=== PATIENT | male | born 1960 | race African-American/Black ===

== ENCOUNTER 2017-12-06 12:40 | Observation (INO) | payer OTHER ==
[2017-12-06 13:31] LABS: ADD MAN DIFF? NO
[2017-12-06 13:48] LABS: BASOPHILS % 0.6 % (0.0-2.0); EOSINOPHILS # 0.2 10^3/ul (0.0-0.5); EOSINOPHILS % 2.8 % (0.0-7.0); HEMATOCRIT 38.6 % (42.0-52.0); HEMOGLOBIN 12.1 g/dl (14.0-18.0); LYMPHOCYTES # 1.2 10^3/ul (0.8-2.9); LYMPHOCYTES % 22.1 % (15.0-51.0); MEAN CORPUSCULAR HEMOGLOBIN 29.2 pg (29.0-33.0); MEAN CORPUSCULAR HGB CONC 31.3 g/dl (32.0-37.0); MEAN PLATELET VOLUME 12.8 fl (7.4-10.4); MONOCYTE # 0.9 10^3/ul (0.3-0.9); MONOCYTES % 15.9 % (0.0-11.0); NEUTROPHIL # 3.1 10^3/ul (1.6-7.5); NEUTROPHILS % 58.4 % (39.0-77.0); PLATELET COUNT 158 10^3/UL (140-415); RED BLOOD COUNT 4.15 10^6/ul (4.70-6.10); RED CELL DISTRIBUTION WIDTH 16.4 % (11.5-14.5)
[2017-12-06 13:48] LABS: WHITE BLOOD COUNT 5.3 10^3/ul (4.8-10.8)
[2017-12-06] MEDS: ASPIRIN 81 MG TAB PO (13:48)
[2017-12-06] MEDS: FUROSEMIDE 40 MG INJ IV (13:48)
[2017-12-06] MEDS: NITROGLYCERIN 2% 1 GM OINT PKT TD (13:49)
[2017-12-06] MEDS: NITROGLYCERIN (SL) 0.4 MG TAB SL (13:49)
[2017-12-06 14:09] LABS: ANION GAP 15 (8-16); BLOOD UREA NITROGEN 13 mg/dl (7-20); CALCIUM 9.2 mg/dl (8.4-10.2); CARBON DIOXIDE 25 mmol/L (21-31); CHLORIDE 108 mmol/L (97-110); CREATININE 0.89 mg/dl (0.61-1.24); GLUCOSE 94 mg/dl (70-220); POTASSIUM 4.8 mmol/L (3.5-5.1); SODIUM 143 mmol/L (135-144)
[2017-12-06 14:19] LABS: TROPONIN-I < 0.012 ng/ml (0.000-0.120)
[2017-12-06] MEDS ORDERED: NACL 0.9% 3 ML SYG IV (18:00)
[2017-12-06] MEDS ORDERED: ONDANSETRON 4 MG TAB PO (18:00)
[2017-12-06] MEDS ORDERED: ONDANSETRON 4 MG INJ IV (18:00)
[2017-12-06] MEDS ORDERED: ZOLPIDEM 5 MG TAB PO (18:00)
[2017-12-06] MEDS ORDERED: ACETAMINOPHEN 325 MG TAB PO ×2 (18:00)
[2017-12-06 18:58] LABS: B-TYPE NATRIURETIC PEPTIDE 987 PG/ML (0-125)
[2017-12-06 20:27] LABS: CREATINE KINASE 47 IU/L (23-200)
[2017-12-06] MEDS: APIXABAN 5 MG TABLET PO (20:37)
[2017-12-06] MEDS: RANITIDINE 150 MG TAB PO (20:37)
[2017-12-06] MEDS: GABAPENTIN 100 MG CAP PO (20:37)
[2017-12-06] MEDS: POTASSIUM CHLORIDE (SR) 20 MEQ TAB PO (20:37)
[2017-12-06] MEDS: SERTRALINE 50 MG TAB PO (20:37)
[2017-12-06] MEDS: ATORVASTATIN 20 MG TAB PO (20:37)
[2017-12-06 20:39] LABS: CK INDEX 1.2; CK-MB 0.55 ng/ml (0.0-2.4); TROPONIN-I < 0.012 ng/ml (0.000-0.120)
[2017-12-07 01:19] LABS: CREATINE KINASE 37 IU/L (23-200)
[2017-12-07 01:31] LABS: CK INDEX 1.2; CK-MB 0.43 ng/ml (0.0-2.4); TROPONIN-I < 0.012 ng/ml (0.000-0.120)
[2017-12-07] MEDS: FUROSEMIDE 40 MG INJ IV (05:22)
[2017-12-07 06:17] LABS: B-TYPE NATRIURETIC PEPTIDE 1170 PG/ML (0-125)
[2017-12-07 06:19] LABS: ANION GAP 12 (8-16); BLOOD UREA NITROGEN 15 mg/dl (7-20); CARBON DIOXIDE 26 mmol/L (21-31); CHLORIDE 109 mmol/L (97-110); CREATININE 0.91 mg/dl (0.61-1.24); GLUCOSE 97 mg/dl (70-220); POTASSIUM 4.1 mmol/L (3.5-5.1); SODIUM 143 mmol/L (135-144)
[2017-12-07] MEDS: BENAZEPRIL 10 MG TAB PO (08:16)
[2017-12-07] MEDS: AMLODIPINE 5 MG TAB PO (08:16)
[2017-12-07] MEDS: POTASSIUM CHLORIDE (SR) 20 MEQ TAB PO ×2 (08:16→12:05)
[2017-12-07] MEDS: GABAPENTIN 100 MG CAP PO ×2 (08:16→12:06)
[2017-12-07] MEDS: FERROUS SULFATE (EC) 325 MG TAB PO (08:17)
[2017-12-07] MEDS: SPIRONOLACTONE 25 MG TAB PO (08:17)
[2017-12-07] MEDS: APIXABAN 5 MG TABLET PO (08:17)
[2017-12-08] MEDS ORDERED: FUROSEMIDE 40 MG TAB PO (10:00)
== END 2017-12-07 18:00 ==
LOC: E/R 12:40 → 6WM 17:53
DX: I11.0 Hypertensive heart disease with heart failure (principal); I50.23 Acute on chronic systolic (congestive) heart failure; I25.10 Atherosclerotic heart disease of native coronary artery without angina pectoris; I48.91 Unspecified atrial fibrillation; E66.01 Morbid (severe) obesity due to excess calories; I69.998 Other sequelae following unspecified cerebrovascular disease; R53.1 Weakness; J44.9 Chronic obstructive pulmonary disease, unspecified; Z68.41 Body mass index [BMI] 40.0-44.9, adult; Z99.3 Dependence on wheelchair
CPT/HCPCS: 71045; 80048; 82550; 82553; 83880; 84484; 85025; 93005; 93971; 96374; 99217; 99285-25; G0378